=== PATIENT | female | born 1970 | race Two or more races ===

== ENCOUNTER 2017-03-25 04:03 | Emergency (ER) | payer OTHER ==
[~2017-03-25] VITALS: Ht 162.6 cm; Wt 59.0 kg
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
--- NOTE | 2017-03-25 04:10 | NUR ---
[employer] AT BEDSIDE.
--- NOTE | 2017-03-25 04:44 | NUR ---
[facility] AT BEDSIDE TO DO WOUND CARE PER MD ORDERS.
--- NOTE | 2017-03-25 05:04 | NUR ---
PT TO CT VIA STRETCHER, VSS.
--- NOTE | 2017-03-25 06:36 | NUR ---
Patient discharged into [facility] custody in stable condition. Written and verbal after care instructions given. Patient verbalizes understanding of instruction. Patient ambulatory with a steady gait.
[2017-03-25 06:39] VITALS: BP 100/69
== END 2017-03-25 06:40 ==
LOC: ER 04:05
DX: S16.1XXA Strain of muscle, fascia and tendon at neck level, initial encounter (principal); S01.83XA Puncture wound without foreign body of other part of head, initial encounter; Y04.8XXA Assault by other bodily force, initial encounter; Y93.89 Activity, other specified; Y92.89 Other specified places as the place of occurrence of the external cause; Y99.8 Other external cause status; Z88.0 Allergy status to penicillin
CPT/HCPCS: 70450; 72125; 99284; A4606; A6402; L0172; Z7610

== ENCOUNTER 2018-12-03 17:46 | Emergency (ER) | payer BC, OTHER ==
[~2018-12-03] VITALS: Ht 162.6 cm; Wt 61.7 kg
--- NOTE | 2018-12-03 18:00 | NUR ---
PATIENT ARRIVED AT UNIT AMBULATORY, WAS SENT HERE FROM URGENT CARE. NO ACUTE DISTRESS. DENIES ANY PAIN OR DISCOMFORT. A/O X 4. ACCOMPANIED TO BED 11 AND CONNECTED TO MONITOR. AWAITING
[2018-12-03 18:43] LABS: BASOPHILS # (AUTO) 0.1 /CMM (0.0-0.2); EOSINOPHILS % (AUTO) 1.1 % (0.0-6.0); HEMATOCRIT 40 % (33-45); HEMOGLOBIN 13.7 g/dL (11.5-14.8); LYMPHOCYTES # (AUTO) 1.7 /CMM (0.8-4.8); MEAN CORPUSCULAR HGB CONC 34 g/dl (31.0-36.0); MEAN CORPUSCULAR VOLUME 94 fL (82-100); MONOCYTES # (AUTO) 0.5 /CMM (0.1-1.30); MONOCYTES % (AUTO) 7.2 % (2.0-12.0); NEUTROPHILS # (AUTO) 4.7 /CMM (1.8-8.9); NEUTROPHILS % (AUTO) 66.7 % (43.0-81.0); PLATELET COUNT (AUTO) 262 /CMM (150-450); RED BLOOD CELL COUNT(AUTO) 4.27 MIL/uL (4.0-5.2)
--- NOTE | 2018-12-03 18:44 | NUR ---
PATIENT WHEELED BY [facility] [employer] FOR CT. LEFT BY MARTY IN STABLE CONDITION.
--- NOTE | 2018-12-03 19:16 | NUR ---
PATIENT RESTING COMFORTABLY ON BED. NO ACUTE DISTRESS. DENIES ANY PAIN OR DISCOMFORT. REPORT GIVEN TO ASHLIE VELASCO FOR LATESHA
[2018-12-03 19:38] LABS: CALCIUM, SERUM 8.7 mg/dL (8.5-10.1); CREATININE 0.9 mg/dL (0.6-1.3); POTASSIUM 3.9 mmol/L (3.5-5.1)
--- NOTE | 2018-12-03 20:12 | NUR ---
Patient discharged to home in stable condition. Written and verbal after care instructions given. Patient verbalizes understanding of instruction. Pt ambulatory with a steady gait
[2018-12-03 20:13] VITALS: BP 106/69
== END 2018-12-03 20:13 | disposition home or self-care (01) ==
LOC: ER 17:48
DX: G45.9 Transient cerebral ischemic attack, unspecified (principal); R40.4 Transient alteration of awareness; Z88.1 Allergy status to other antibiotic agents
CPT/HCPCS: 36415; 70450-TC; 80048-TC; 82962-TC; 85025-TC